=== PATIENT | male | born 1990 | race Two or more races ===

== ENCOUNTER 2025-06-19 22:16 | Emergency (ER) | payer MEDICAID, OTHER ==
[~2025-06-19] VITALS: Ht 165.1 cm; Wt 63.5 kg
[2025-06-19 22:26] VITALS: TEMP 98.3
[2025-06-19] MEDS ORDERED: OLANZAPINE 10 MG VIAL IM ONE (22:40)
[2025-06-19] MEDS: OLANZAPINE 10 MG VIAL IM ONE (22:45)
[2025-06-19] MEDS: IV NS 0.9% 1,000 ML BAG IV ONE (22:45)
[2025-06-19 22:48] LABS: PLATELET COUNT (AUTO) 296 K/uL (150-450); RED BLOOD CELL COUNT(AUTO) 5.45 MIL/uL (4.5-6.0); RED CELL DISTRIBUTION WIDTH 14.1 % (11.5-15.0); WHITE BLOOD COUNT (AUTO) 13.6 K/uL (4.3-11.0)
[2025-06-19 22:54] LABS: ABG BASE EXCESS 2.0 mmol/L (-2.0-3.0); ABG OXYGEN SATURATION 98.8 % (94.0-98.0); ABG PCO2 14.0 mmHg (35.0-48.0); ABG PH 7.716 (7.350-7.450); ABG PO2 120.4 mmHg (83.0-108.0); ABG TOTAL HEMOGLOBIN 16.3 G/dL (13.5-17.5); FLOW, BLOOD GAS 0.00 L/min (0.00-30.00); FRACTIONATED INSPIRED OXYGEN 21.0 %; SITE, ABG RIGHT RADIAL
[2025-06-19 22:55] LABS: CALCIUM, SERUM 9.7 mg/dL (8.5-10.1); CREATININE 1.3 mg/dL (0.6-1.3); SODIUM SERUM 138 mmol/L (136-145); UREA NITROGEN, BLOOD 13 mg/dL (7-18)
[2025-06-19 23:08] LABS: ASPARTATE AMINOTRANSFERASE 19 U/L (15-37); TOTAL PROTEIN, SERUM 8.7 g/dL (6.4-8.2)
[2025-06-19 23:10] LABS: ALCOHOL, BLOOD < 3 mg/dL (0-10)
[2025-06-19 23:29] VITALS: BP 157/109; O2SAT 94
[2025-06-20 00:14] LABS: APPEARANCE,URINE CLEAR (CLEAR); BLOOD, URINE 2+ Ery/uL (NEGATIVE); LEUKOCYTE ESTERASE ,URINE NEGATIVE (NEGATIVE); NITRITE, URINE NEGATIVE (NEGATIVE); UGLUCOSE NEGATIVE (NEGATIVE)
[2025-06-20] MEDS ORDERED: POTASSIUM CHLORIDE 20 MEQ TAB.PRT.SR PO ONE (00:29)
[2025-06-20] MEDS: IV NS 0.9% 1,000 ML BAG IV ONE (00:33)
[2025-06-20] MEDS: POTASSIUM CHLORIDE 20 MEQ TAB.PRT.SR PO ONE (00:33)
[2025-06-20 00:44] LABS: BARBITURATE, URINE NEGATIVE (NEGATIVE); BENZODIAZEPINE, URINE NEGATIVE (NEGATIVE); CANNABINOID, URINE NEGATIVE (NEGATIVE); OPIATE, URINE NEGATIVE (NEGATIVE)
[2025-06-20 00:51] LABS: AMPHETAMINE, URINE POSITIVE (NEGATIVE); COCCAINE, URINE POSITIVE (NEGATIVE)
[2025-06-20 02:12] LABS: ADD URINE CULTURE YES; SQUAMOUS EPITHELIAL CELL,UR Few /HPF (None Seen); URINE AMORPHOUS URATE Many /HPF (None Seen)
[2025-06-20 02:13] LABS: COARSE GRANULAR CASTS,URINE Moderate /LPF (None Seen)
== END 2025-06-20 01:42 | disposition home or self-care (01) ==
LOC: ER 22:18
DX: T43.651A Poisoning by methamphetamines accidental (unintentional), initial encounter (principal); F45.8 Other somatoform disorders; E87.6 Hypokalemia; R06.02 Shortness of breath; R74.01 Elevation of levels of liver transaminase levels; Z60.2 Problems related to living alone; Z20.822 Contact with and (suspected) exposure to COVID-19; Y92.89 Other specified places as the place of occurrence of the external cause
CPT/HCPCS: 99284; 96372; 96360; 93005; 82803; 85025; 80048; 87086; 80076; 81001; 36415; 82962; 36600; 87426; 80143; 80320; 80307; 96361; J7030 ×2; J3490; G0480